=== PATIENT | male | born 1960 | race Caucasian/White ===

== ENCOUNTER 2023-06-04 06:53 | Outpatient (RCR) | payer SELFPAY | END 2023-06-04 23:59 | disposition home or self-care (01) | LOC: RPT 06:53 | PROVIDERS: ATTENDING PHYSICIAN Family Medicine | DX: M25.511 Pain in right shoulder (principal); M19.011 Primary osteoarthritis, right shoulder; Z73.6 Limitation of activities due to disability | CPT/HCPCS: 97010; 97110; 97140; 97162 ==

== ENCOUNTER 2023-06-18 06:32 | Outpatient (RCR) | payer SELFPAY | END 2023-06-18 09:09 | disposition home or self-care (01) | LOC: RPT 06:32 | PROVIDERS: ATTENDING PHYSICIAN Family Medicine | DX: M25.511 Pain in right shoulder (principal); M19.011 Primary osteoarthritis, right shoulder; Z73.6 Limitation of activities due to disability | CPT/HCPCS: 97010; 97110; 97140 ==

== ENCOUNTER → 2023-06-24 08:09 | Outpatient (REF) | payer OTHER, SELFPAY ==
[2023-06-24 08:52] LABS: % Basophils 0.4 % (0-2); % Eosinophils 2.5 % (0-6); % Immature Granulocytes 0.7 % (0-0.5); % Lymphocytes 34.8 % (20.5-51.1); % Monocytes 10.5 % (1.7-9.3); % Neutrophils 51.1 % (42.2-75.2); Absolute Eosinophils 0.1 10^3/uL (0-0.7); Absolute Lymphocytes 1.6 10^3/uL (1.2-3.4); Absolute Monocytes 0.5 10^3/uL (0.1-0.6); Absolute Neutrophils 2.3 10^3/uL (1.4-6.5); Hematocrit 47.2 % (39.0-52.0); Mean Corpuscular Hgb 33.1 pg (27.0-31.0); Mean Corpuscular Volume 91.8 fL (80.0-94.0); Mean Platelet Volume 10.2 fL (7.4-10.4); Nucleated Red Blood Cells % 0 % (-); Platelet Count 103 10^3/uL (130-400); Red Blood Cell Count 5.14 10^6/uL (4.70-6.10); White Blood Cell Count 4.5 10^3/uL (4.8-10.8)
[2023-06-24 13:08] LABS: Glycohemoglobin (HgbA1c) 11.3 % (4.0-5.6)
[2023-06-27 19:42] LABS: Albumin 4.83 g/dL (3.75-5.01); Alpha 1 Globulin 0.26 g/dL (0.19-0.46); Alpha 2 Globulin 0.82 g/dL (0.48-1.05); SPEP IFE Reflex Not Done; Total Protein-Electrophoresis 8.1 g/dL (6.3-8.2)
== END ==
LOC: REG 08:09
PROVIDERS: ATTENDING PHYSICIAN Family Medicine; REFERRING PHYSICIAN Nuclear Medicine Nuclear Cardiology
DX: D69.8 Other specified hemorrhagic conditions (principal)
CPT/HCPCS: 36415; 83036; 84155; 84165; 85025

== ENCOUNTER → 2023-07-22 06:57 | Outpatient (REF) | payer OTHER, SELFPAY ==
[2023-07-22 07:27] LABS: % Basophils 0.2 % (0-2); % Eosinophils 2.3 % (0-6); % Immature Granulocytes 0.2 % (0-0.5); % Lymphocytes 35.5 % (20.5-51.1); % Monocytes 9.7 % (1.7-9.3); % Neutrophils 52.1 % (42.2-75.2); Absolute Eosinophils 0.1 10^3/uL (0-0.7); Absolute Lymphocytes 1.7 10^3/uL (1.2-3.4); Absolute Monocytes 0.5 10^3/uL (0.1-0.6); Absolute Neutrophils 2.5 10^3/uL (1.4-6.5); Hematocrit 44.2 % (39.0-52.0); Hemoglobin 15.8 g/dL (13.0-18.0); Mean Corp Hgb Conc. 35.7 g/dL (33.0-37.0); Mean Corpuscular Hgb 33.1 pg (27.0-31.0); Mean Corpuscular Volume 92.7 fL (80.0-94.0); Mean Platelet Volume 10.3 fL (7.4-10.4); Nucleated Red Blood Cells % 0 % (-); Platelet Count 100 10^3/uL (130-400); Red Blood Cell Count 4.77 10^6/uL (4.70-6.10); Red Cell Dist. Width 11.9 % (11.5-14.5); Reticulocyte Count 2.3 % (0.4-2.8); White Blood Cell Count 4.7 10^3/uL (4.8-10.8)
[2023-07-25 05:30] LABS: Albumin 4.63 g/dL (3.75-5.01); Alpha 1 Globulin 0.27 g/dL (0.19-0.46); Alpha 2 Globulin 0.84 g/dL (0.48-1.05); Free Kappa Light Chains,Quant 22.02 mg/L (3.30-19.40); Free Lambda Light Chains,Quant 20.63 mg/L (5.71-26.30); IgA 316 mg/dL (68-408); IgG 1141 mg/dL (768-1632); IgM 77 mg/dL (35-263); Immunofixation Electrophoresis IFE Done; Kappa/Lambda Fr Light Ratio 1.07 (0.26-1.65); Total Protein-Electrophoresis 7.8 g/dL (6.3-8.2)
== END ==
LOC: REG 06:57
PROVIDERS: ATTENDING PHYSICIAN Family Medicine; REFERRING PHYSICIAN Nuclear Medicine Nuclear Cardiology
DX: D72.819 Decreased white blood cell count, unspecified (principal); D69.6 Thrombocytopenia, unspecified
CPT/HCPCS: 36415; 82784; 83521; 84155; 84165; 85025; 85045; 86334

== ENCOUNTER → 2023-10-21 10:21 | Outpatient (REF) | payer OTHER, SELFPAY | LOC: REG 10:21 | PROVIDERS: ATTENDING PHYSICIAN Physician Assistant; FAMILY PHYSICIAN Family Medicine | DX: E11.65 Type 2 diabetes mellitus with hyperglycemia (principal); M54.12 Radiculopathy, cervical region | CPT/HCPCS: 36415; 72052; 83036 ==

== ENCOUNTER → 2024-02-03 09:58 | Outpatient (REF) | payer OTHER, SELFPAY ==
[2024-02-03 12:03] LABS: % Basophils 0.5 % (0-2); % Eosinophils 2.2 % (0-6); % Immature Granulocytes 0.2 % (0-0.5); % Lymphocytes 35.7 % (20.5-51.1); % Monocytes 11.2 % (1.7-9.3); % Neutrophils 50.2 % (42.2-75.2); Absolute Eosinophils 0.1 10^3/uL (0-0.7); Absolute Lymphocytes 1.4 10^3/uL (1.2-3.4); Absolute Monocytes 0.5 10^3/uL (0.1-0.6); Hematocrit 45.3 % (39.0-52.0); Hemoglobin 16.1 g/dL (13.0-18.0); Mean Corp Hgb Conc. 35.5 g/dL (33.0-37.0); Mean Corpuscular Hgb 33.8 pg (27.0-31.0); Mean Corpuscular Volume 95.2 fL (80.0-94.0); Mean Platelet Volume 10.6 fL (7.4-10.4); Nucleated Red Blood Cells % 0 % (-); Platelet Count 76 10^3/uL (130-400); Red Blood Cell Count 4.76 10^6/uL (4.70-6.10); Red Cell Dist. Width 11.9 % (11.5-14.5)
[2024-02-03 12:23] LABS: ALT (SGPT) 110 U/L (0-50); AST (SGOT) 61 U/L (17-59); Albumin 4.7 g/dl (3.5-5.0); Alkaline Phosphatase 71 U/L (38-126); Blood Urea Nitrogen 15 mg/dl (9-20); Calcium 9.8 mg/dl (8.4-10.2); Carbon Dioxide 30 mmol/L (22-30); Chloride 98 mmol/L (98-107); Glucose 214 mg/dl (70-99); HDL Cholesterol 61 mg/dl; LDL Cholesterol, Calculated 120 mg/dl; Sodium 143 mmol/L (135-145); Total Bilirubin 0.4 mg/dl (0.2-1.3); Total Cholesterol 198 mg/dl (50-199); Total Protein 7.9 g/dl (6.3-8.2); Triglyceride 89 mg/dl (10-149); Very Low Density Lipoprotein 17 mg/dl (0-30); eGFR > 60.00
[2024-02-03 12:26] LABS: Glycohemoglobin (HgbA1c) 9.5 % (4.0-5.6)
[2024-02-03 12:53] LABS: PSA, Total - Screen 1.03 ng/ml (0.0-4.0); TSH 2.11 uIU/ml (0.47-4.68)
[2024-02-03 13:30] LABS: Microalbumin, Random Urine 1.5 mg/dl (0.6-1.7); Microalbumin/creatinine Ratio 37.2 mg/g
== END ==
LOC: REG 09:58
PROVIDERS: ATTENDING PHYSICIAN Family Medicine
DX: E11.65 Type 2 diabetes mellitus with hyperglycemia (principal); D69.6 Thrombocytopenia, unspecified; D72.819 Decreased white blood cell count, unspecified; Z12.5 Encounter for screening for malignant neoplasm of prostate
CPT/HCPCS: 36415; 80053; 80061; 82043; 82570; 83036; 84443; 85025; G0103

== ENCOUNTER → 2024-04-08 12:18 | Outpatient (REF) | payer OTHER, SELFPAY | LOC: RAD 12:18 | PROVIDERS: ATTENDING PHYSICIAN Family Medicine; REFERRING PHYSICIAN Nuclear Medicine Nuclear Cardiology | DX: R68.89 Other general symptoms and signs (principal); J20.8 Acute bronchitis due to other specified organisms; R05.9 Cough, unspecified | CPT/HCPCS: 71046 ==

== ENCOUNTER → 2024-05-04 06:48 | Outpatient (REF) | payer OTHER, SELFPAY ==
[2024-05-04 09:00] LABS: ALT (SGPT) 142 U/L (0-50); AST (SGOT) 77 U/L (17-59); HDL Cholesterol 51 mg/dl; LDL Cholesterol, Calculated 62 mg/dl; Total Cholesterol 144 mg/dl (50-199); Triglyceride 157 mg/dl (10-149); Very Low Density Lipoprotein 31 mg/dl (0-30)
== END ==
LOC: REG 06:48
PROVIDERS: ATTENDING PHYSICIAN Family Medicine; FAMILY PHYSICIAN Nuclear Medicine Nuclear Cardiology
DX: E11.65 Type 2 diabetes mellitus with hyperglycemia (principal)
CPT/HCPCS: 36415; 80061; 83036; 84450; 84460

== ENCOUNTER → 2024-09-07 06:46 | Outpatient (REF) | payer OTHER, SELFPAY ==
[2024-09-07 08:17] LABS: ALT (SGPT) 91 U/L (0-50); AST (SGOT) 53 U/L (17-59); Alkaline Phosphatase 61 U/L (38-126); Direct Bilirubin 0.1 mg/dl (0.0-0.4); HDL Cholesterol 46 mg/dl; LDL Cholesterol, Calculated 50 mg/dl; Total Bilirubin 0.5 mg/dl (0.2-1.3); Total Cholesterol 113 mg/dl (50-199); Triglyceride 87 mg/dl (10-149); Very Low Density Lipoprotein 17 mg/dl (0-30)
[2024-09-07 10:01] LABS: Glycohemoglobin (HgbA1c) 8.3 % (4.0-5.6)
== END ==
LOC: REG 06:46
PROVIDERS: ATTENDING PHYSICIAN Family Medicine; OTHER PHYSICIAN Nuclear Medicine Nuclear Cardiology
DX: E11.65 Type 2 diabetes mellitus with hyperglycemia (principal)
CPT/HCPCS: 36415; 80061; 80076; 83036

== ENCOUNTER → 2024-12-23 07:51 | Outpatient (REF) | payer OTHER, SELFPAY ==
[2024-12-23 19:16] LABS: Microalb - Urine Creatinine 32.000 mg/dl
[2024-12-23 19:21] LABS: Microalbumin, Random Urine 1.8 mg/dl (0.6-1.7)
[2024-12-24 08:18] LABS: Glycohemoglobin (HgbA1c) 8.9 % (4.0-5.6)
== END ==
LOC: CLAB 07:51
PROVIDERS: ATTENDING PHYSICIAN Family Medicine
DX: E11.65 Type 2 diabetes mellitus with hyperglycemia (principal)
CPT/HCPCS: 82043; 82570; 83036